=== PATIENT | female | born 1960 | race Asian ===

== ENCOUNTER → 2017-01-01 | Outpatient (CLI) | payer BC ==
[~2017-01-01] MED LIST: ADVIL200 MG PO; MEDROL 4MG DOSPA4 MG PO; NO HOME MEDICATIONS
== END ==
LOC: MC.RAD 13:39
DX: Z12.31 Encounter for screening mammogram for malignant neoplasm of breast (principal)

== ENCOUNTER → 2018-02-19 | Outpatient (CLI) | payer BC | LOC: MC.RAD 09:20 | DX: Z12.31 Encounter for screening mammogram for malignant neoplasm of breast (principal) ==

== ENCOUNTER → 2019-03-10 | Outpatient (CLI) | payer BC | LOC: MC.RAD 08:59 | DX: Z12.31 Encounter for screening mammogram for malignant neoplasm of breast (principal) ==

== ENCOUNTER → 2020-06-22 | Outpatient (CLI) | payer BC | LOC: MC.RAD 09:59 | DX: Z12.31 Encounter for screening mammogram for malignant neoplasm of breast (principal); Z01.411 Encounter for gynecological examination (general) (routine) with abnormal findings; R92.0 Mammographic microcalcification found on diagnostic imaging of breast ==

== ENCOUNTER → 2020-06-29 | Outpatient (CLI) | payer BC | LOC: MC.RAD 13:00 | DX: Z01.411 Encounter for gynecological examination (general) (routine) with abnormal findings (principal); R92.0 Mammographic microcalcification found on diagnostic imaging of breast ==

== ENCOUNTER → 2021-01-03 | Outpatient (CLI) | payer BC | LOC: MC.RAD 07:53 | DX: R92.0 Mammographic microcalcification found on diagnostic imaging of breast (principal) ==

== ENCOUNTER → 2021-09-09 | Outpatient (CLI) | payer BC | LOC: MC.RAD 10:43 | DX: Z12.31 Encounter for screening mammogram for malignant neoplasm of breast (principal) ==

== ENCOUNTER 2022-09-29 15:31 | Emergency (ER) | payer BC ==
[~2022-09-29] VITALS: Ht 165.1 cm; Wt 68.2 kg
[2022-09-29 15:43] VITALS: TEMP 97.7
[2022-09-29 16:17] LABS: COLLECTION METHOD CLEAN CATCH
[2022-09-29 16:23] LABS: BASO % 0.6 % (0.0-2.0); EOS # 0.1 K/mm3 (0.0-0.7); EOS % 2.2 % (0.0-4.0); GRAN # 2.9 K/mm3 (1.4-6.5); GRAN % 53.1 % (42.2-75.2); HEMATOCRIT 40.7 % (37.0-47.0); HEMOGLOBIN 13.9 g/dl (12.5-16.0); LYMPH % 37.1 % (20.0-51.0); MEAN CELL VOLUME 90 fl (80.0-100.0); MEAN CORPUSCULAR HEMOGLOBIN 31 pg (27-31); MEAN CORPUSCULAR HGB CONC 34 g/dl (33.0-37.0); MEAN PLATELET VOLUME 10.8 fl (7.4-10.4); MONO # 0.4 K/mm3 (0.1-0.6); MONO % 6.8 % (1.7-9.3); PLATELET COUNT 210 K/mm3 (130-400); RED BLOOD COUNT 4.55 M/mm3 (4.10-5.30); REDCELL DISTRIBUTION WIDTH-CV 12.9 % (11.5-14.5)
[2022-09-29 16:24] LABS: SQUAMOUS EPITHELIAL None Seen /hpf (0-10); URINE BACTERIA Rare /hpf (NONE SEEN); URINE RBC None Seen /hpf (0-2)
[2022-09-29 16:25] LABS: URINE APPEARANCE Clear (CLEAR/HAZY); URINE COLOR Yellow (YELLOW); URINE GLUCOSE Negative (NEGATIVE); URINE KETONE Negative (NEGATIVE); URINE NITRATE Negative (NEGATIVE); URINE PROTEIN(semi-quant) Negative (NEGATIVE); URINE UROBILINOGEN 0.2 E.U/dL (0.2-1.0)
[2022-09-29 16:26] LABS: URINE BLOOD TRACE-INTACT (NEGATIVE)
[2022-09-29 16:39] LABS: ALBUMIN 4.3 gm/dL (3.4-4.8); BILIRUBIN,TOTAL 0.4 mg/dL (0.2-1.2); C-REACTIVE PROTEIN 2.23 mg/dL (0.00-0.50); CALCIUM 9.7 mg/dL (8.4-10.2); CREATININE, serum 0.68 mg/dL (0.57-1.11); POTASSIUM 4.2 mmol/L (3.5-4.5); TOTAL PROTEIN 7.3 gm/dL (6.2-8.1)
[2022-09-29] MEDS ORDERED: FLAGYL500 MG PO (17:59)
[2022-09-29] MEDS ORDERED: CIPRO 500MG TA500 MG PO (17:59)
[2022-09-29 18:16] VITALS: BP 139/80; PULSE 63
== END 2022-09-29 18:16 | disposition home or self-care (01) ==
LOC: COL.ER 15:31
PROVIDERS: Nurse Practitioner
DX: K57.32 Diverticulitis of large intestine without perforation or abscess without bleeding (principal); Z88.0 Allergy status to penicillin; Z28.310 Unvaccinated for COVID-19
CPT/HCPCS: J7030; Q9967

== ENCOUNTER → 2023-01-18 | Outpatient (CLI) | payer BC ==
[~2023-01-18] MED LIST changes: +CIPRO 500MG TA500 MG PO; +FLAGYL500 MG PO
== END ==
LOC: MC.RAD 10:21
DX: Z12.31 Encounter for screening mammogram for malignant neoplasm of breast (principal)